=== PATIENT | female | born 1980 | race African-American/Black ===

== ENCOUNTER 2024-02-08 12:05 | Emergency (ER) | payer BC, OTHER ==
[~2024-02-08] VITALS: Ht 165.1 cm; Wt 70.0 kg
[2024-02-08 12:07] VITALS: O2SAT 100
[2024-02-08 13:26] LABS: BASOPHILS % 0.8 % (0.0-2.0); DIFFERENTIAL COMMENT 0; EOSINOPHILS % 4.2 % (0.0-5.0); HEMATOCRIT. 30.8 % (36.0-48.0); HEMOGLOBIN. 9.8 g/dL (12.0-16.0); LYMPHOCYTES % 35.7 % (20.0-50.0); MEAN CORPUSCULAR HEMOGLOBIN 24.3 pg (28.0-32.0); MEAN CORPUSCULAR HGB CONC 31.7 g/dL (31.0-37.0); MEAN CORPUSCULAR VOLUME 76.7 fL (81.0-99.0); MEAN PLATELET VOLUME 7.7 fl (7.4-10.4); MONOCYTES % 4.3 % (2.0-8.0); PLATELET 408 x1000/uL (130-400); RED BLOOD CELL COUNT 4.02 mill/uL (4.2-5.4); RED CELL DISTRIBUTION WIDTH 15.3 % (11.6-14.6)
[2024-02-08 13:30] LABS: CHLORIDE 107 mEq/L (98-107); POTASSIUM 3.8 mEq/L (3.5-5.1); SODIUM 138 mEq/L (136-145)
[2024-02-08 13:31] LABS: CARBON DIOXIDE 27 mEq/L (21-32)
[2024-02-08 13:32] LABS: CALCIUM 9.1 mg/dL (8.7-10.4)
[2024-02-08 13:36] LABS: CREATININE 0.9 mg/dL (0.6-1.0); GLUCOSE 113 mg/dL (70-105); UREA NITROGEN BLOOD 6 mg/dL (9-23)
[2024-02-08 13:37] LABS: HCG SCREEN NEGATIVE
[2024-02-08 13:38] LABS: TROPONIN I HIGH SENSITIVITY < 4 ng/L (3.0-34)
[2024-02-08] MEDS ORDERED: ASPI-1497 MT (16:06)
[2024-02-08 16:13] VITALS: BP 133/82; PULSE 85; RESP 14; TEMP 36.89184; O2SAT 100
== END 2024-02-08 16:18 | disposition home or self-care (01) ==
LOC: ER 12:05
DX: R07.9 Chest pain, unspecified (principal); J45.909 Unspecified asthma, uncomplicated
CPT/HCPCS: 80048; 84703; 85025; 84484; 36415; 71045; 70450; 93005; 99285; Z7610 ×2; C1893